=== PATIENT | female | born 1995 | race African-American/Black ===

== ENCOUNTER 2018-12-10 07:37 | Inpatient (IN) | payer OTHER ==
[2018-12-10] MEDS: ONDANSETRON 4 MG TAB PO (08:19)
[2018-12-10 08:34] LABS: ADD UMIC YES; UR ASCORBIC ACID NEGATIVE (NEGATIVE); UR BACTERIA FEW /HPF (NONE SEEN); UR BILIRUBIN (Dip) NEGATIVE (NEGATIVE); UR BLOOD (Dip) 1+ mg/dL (NEGATIVE); UR CLARITY SLIGHTLY CLOUDY (CLEAR); UR COLOR YELLOW (YELLOW); UR GLUCOSE (Dip) NEGATIVE (NEGATIVE); UR KETONES (Dip) 2+ mg/dL (NEGATIVE); UR LEUKOCYTE ESTERASE (Dip) 3+ Leu/ul (NEGATIVE); UR MUCUS MANY /HPF (NONE SEEN); UR NITRITE (Dip) NEGATIVE (NEGATIVE); UR RBC 13 /HPF (0-5); UR SQUAMOUS EPITHELIAL CELL FEW /HPF (FEW); UR TOTAL PROTEIN (Dip) 2+ mg/dl (NEGATIVE); UR UROBILINOGEN (Dip) NEGATIVE (NEGATIVE); UR WBC 40 /HPF (0-5)
[2018-12-10 09:07] LABS: ALANINE AMINOTRANSFERASE 12 IU/L (13-69); ALBUMIN 3.7 g/dl (3.3-4.9); ALBUMIN/GLOBULIN RATIO 1.02; ALKALINE PHOSPHATASE 56 IU/L (42-121); ANION GAP 12 (5-13); ASPARTATE AMINO TRANSFERASE 20 IU/L (15-46); BILIRUBIN,INDIRECT 0.4 mg/dl (0-1.1); BILIRUBIN,TOTAL 0.4 mg/dl (0.2-1.3); BLOOD UREA NITROGEN 8 mg/dl (7-20); CALCIUM 8.9 mg/dl (8.4-10.2); CARBON DIOXIDE 18 mmol/L (21-31); CHLORIDE 106 mmol/L (97-110); CREATININE 0.54 mg/dl (0.44-1.00); Estimated GFR > 60 mL/min (>60); GLUCOSE 73 mg/dl (70-220); POTASSIUM 3.2 mmol/L (3.5-5.1); SODIUM 136 mmol/L (135-144); TOTAL PROTEIN 7.3 g/dl (6.1-8.1)
[2018-12-10 09:39] LABS: ADD MAN DIFF? NO
[2018-12-10 09:41] LABS: ABNORMAL IP MESSAGE 1; BASOPHIL # 0.1 10^3/ul (0.0-0.1); BASOPHILS % 0.6 % (0.0-2.0); EOSINOPHILS % 0.4 % (0.0-7.0); HEMATOCRIT 27.2 % (37.0-47.0); HEMOGLOBIN 7.8 g/dl (12.0-16.0); LYMPHOCYTES # 1.2 10^3/ul (0.8-2.9); LYMPHOCYTES % 15.5 % (15.0-51.0); MEAN CORPUSCULAR HEMOGLOBIN 15.3 pg (29.0-33.0); MEAN CORPUSCULAR HGB CONC 28.7 g/dl (32.0-37.0); MEAN CORPUSCULAR VOLUME 53.2 fl (82.0-101.0); MEAN PLATELET VOLUME 9.3 fl (7.4-10.4); MONOCYTE # 0.6 10^3/ul (0.3-0.9); MONOCYTES % 7.3 % (0.0-11.0); NEUTROPHILS % 75.8 % (39.0-77.0); PLATELET COUNT 430 10^3/UL (140-415); RED BLOOD COUNT 5.11 10^6/ul (4.20-5.40); RED CELL DISTRIBUTION WIDTH 21.4 % (11.5-14.5)
[2018-12-10 09:41] LABS: WHITE BLOOD COUNT 7.9 10^3/ul (4.8-10.8)
[2018-12-10 09:45] LABS: POSITIVE DIFF @See below
[2018-12-10] MEDS: LACTATED RINGER'S 1,000 ML IV ×4 (09:48→20:11)
[2018-12-10 09:50] LABS: URIC ACID 4.9 mg/dl (3.1-7.9)
[2018-12-10] MEDS: ACETAMINOPHEN 500 MG TAB PO (09:50)
[2018-12-10 10:00] LABS: INR 0.98; PROTIME 13.1 Sec (11.9-14.9)
[2018-12-10 10:01] LABS: PARTIAL THROMBOPLASTIN TIME 30.1 Sec (23.0-35.0)
[2018-12-10] MEDS: POTASSIUM CHLORIDE (SR) 20 MEQ TAB PO (10:20)
[2018-12-10 10:24] LABS: CREATININE,URINE RANDOM 253.49 mg/dl (20-320); PROTEIN/CREAT RATIO 0.08 RATIO
[2018-12-10 11:16] LABS: RUPTURE FETAL MEMBRANES NEGATIVE (NEGATIVE)
[2018-12-10] MEDS: CYCLOBENZAPRINE 10 MG TAB PO (12:15)
[2018-12-10 21:13] LABS: AMPHETAMINE/METHAMPHETAMINE Negative (NEGATIVE); BARBITURATES Negative (NEGATIVE); BENZODIAZEPINES Negative (NEGATIVE); CANNABINOIDS Positive (NEGATIVE); COCAINE Negative (NEGATIVE); OPIATES Negative (NEGATIVE)
[2018-12-11] MEDS: LACTATED RINGER'S 1,000 ML IV ×4 (04:57→22:51)
[2018-12-11] MEDS ORDERED: ONDANSETRON 4 MG INJ (06:18)
[2018-12-11] MEDS: ONDANSETRON 4 MG INJ IV ×2 (06:22→18:42)
[2018-12-11 06:27] LABS: ADD MAN DIFF? NO
[2018-12-11 06:36] LABS: ABNORMAL IP MESSAGE 1; BASOPHILS % 0.5 % (0.0-2.0); EOSINOPHILS # 0.1 10^3/ul (0.0-0.5); EOSINOPHILS % 0.8 % (0.0-7.0); HEMATOCRIT 22.2 % (37.0-47.0); LYMPHOCYTES # 1.5 10^3/ul (0.8-2.9); MEAN CORPUSCULAR HEMOGLOBIN 15.4 pg (29.0-33.0); MEAN CORPUSCULAR HGB CONC 28.8 g/dl (32.0-37.0); MEAN CORPUSCULAR VOLUME 53.5 fl (82.0-101.0); MEAN PLATELET VOLUME 9.3 fl (7.4-10.4); MONOCYTE # 0.6 10^3/ul (0.3-0.9); MONOCYTES % 9.9 % (0.0-11.0); NEUTROPHIL # 3.8 10^3/ul (1.6-7.5); NEUTROPHILS % 63.5 % (39.0-77.0); PLATELET COUNT 331 10^3/UL (140-415); RED BLOOD COUNT 4.15 10^6/ul (4.20-5.40); RED CELL DISTRIBUTION WIDTH 20.7 % (11.5-14.5)
[2018-12-11 07:00] LABS: POSITIVE DIFF @See below
[2018-12-11 07:01] LABS: HEMOGLOBIN 6.4 g/dl (12.0-16.0); PATH REVIEW? YES
[2018-12-11 07:49] LABS: BASOPHILS % (M) 1 % (0-2); BURR CELLS 1+ (0-0); EOSINOPHILS % (M) 4 % (0-7); MONOCYTE #M 0.3 10^3/ul (0.3-0.9); OVALOCYTES 1+ (0-0); PLATELET ESTIMATE NORMAL; POIKILOCYTOSIS 2+ (0-0)
[2018-12-11 10:08] LABS: ANISOCYTOSIS 2+ (0-0); BAND NEUTROPHILS #M 0.1 10^3/ul (0.0-0.6); BAND NEUTROPHILS % (M) 2 % (0-4); GIANT THROMBO% (M) 3 % (0-0); HYPOCHROMASIA 2+ (0-0); LYMPHOCYTES #M 1.3 10^3/ul (0.8-2.9); LYMPHOCYTES % (M) 22 % (15-51); MICROCYTOSIS 2+ (0-0); MONOCYTES % (M) 5 % (0-11); REACTIVE LYMPHOCYTES #M 0.1 10^3/ul (0.0-0.0); REACTIVE LYMPHOCYTES% (M) 2 % (0-0); SEG NEUT #M 4.1 10^3/ul (1.6-7.5); SEGMENTED NEUTROPHILS (M) % 69 % (39-77); SMUDGE%M 7 % (0-0); TARGET CELLS 1+ (0-0)
[2018-12-11 11:27] LABS: IMMEDIATE SPIN CROSSMATCH 1 1
[2018-12-11] MEDS: SOD CHLORIDE 0.9% 250 ML IV* (11:45)
[2018-12-11] MEDS: PRENATAL VITAMIN PO (13:10)
[2018-12-11 19:51] LABS: COLLECTION PERIOD 24 hrs
[2018-12-11 20:09] LABS: COLLECTION PERIOD 24 hrs; SCRET 0.54 mg/dl (0.44-1.00); VOLUME 2175 ml/24hrs; VOLUME 2175 mls
[2018-12-11 20:18] LABS: CREATININE CLEARANCE 123.1 mls/min (84.0-162.0); CREATININE,URINE RANDOM 44.02 mg/dl (20-320)
[2018-12-11 20:19] LABS: 24HR URINE TOTAL PROTEIN 369.8 mg/24hrs (42.0-225.0)
[2018-12-12] MEDS: LACTATED RINGER'S 1,000 ML IV ×5 (00:03→18:48)
[2018-12-12 06:04] LABS: ADD MAN DIFF? NO
[2018-12-12 06:10] LABS: ABNORMAL IP MESSAGE 1; BASOPHILS % 0.5 % (0.0-2.0); EOSINOPHILS # 0.1 10^3/ul (0.0-0.5); EOSINOPHILS % 1.7 % (0.0-7.0); HEMOGLOBIN 7.4 g/dl (12.0-16.0); LYMPHOCYTES # 1.4 10^3/ul (0.8-2.9); LYMPHOCYTES % 21.2 % (15.0-51.0); MEAN CORPUSCULAR HEMOGLOBIN 16.3 pg (29.0-33.0); MEAN CORPUSCULAR HGB CONC 29.6 g/dl (32.0-37.0); MEAN CORPUSCULAR VOLUME 55.1 fl (82.0-101.0); MEAN PLATELET VOLUME 8.9 fl (7.4-10.4); MONOCYTE # 0.7 10^3/ul (0.3-0.9); MONOCYTES % 10.3 % (0.0-11.0); NEUTROPHIL # 4.3 10^3/ul (1.6-7.5); NEUTROPHILS % 65.8 % (39.0-77.0); PLATELET COUNT 307 10^3/UL (140-415); RED BLOOD COUNT 4.54 10^6/ul (4.20-5.40); RED CELL DISTRIBUTION WIDTH 23.5 % (11.5-14.5)
[2018-12-12 06:10] LABS: WHITE BLOOD COUNT 6.5 10^3/ul (4.8-10.8)
[2018-12-12 06:21] LABS: POSITIVE DIFF @See below
[2018-12-12] MEDS: PRENATAL VITAMIN PO (08:31)
[2018-12-12] MEDS: ONDANSETRON 4 MG INJ IV ×2 (08:36→18:55)
[2018-12-12] MEDS: DIPHENHYDRAMINE 25 MG CAP PO (21:03)
[2018-12-13] MEDS: LACTATED RINGER'S 1,000 ML IV ×2 (03:47→11:29)
[2018-12-13] MEDS: PRENATAL VITAMIN PO (09:37)
[2018-12-13] MEDS: ONDANSETRON 4 MG INJ IV (09:39)
== END 2018-12-13 18:05 | disposition home or self-care (01) | DRG 832 ==
LOC: OBT 07:37 → L-D 07:39 → OBT 15:10 → L-D 15:10 → 2NE 12-11 14:43
DX: O21.8 Other vomiting complicating pregnancy (principal); O16.2 Unspecified maternal hypertension, second trimester; O99.012 Anemia complicating pregnancy, second trimester; Z3A.21 21 weeks gestation of pregnancy
CPT/HCPCS: 36415; 36430; 76815; 76816; 76817; 80053; 80307; 81001; 81003; 82570; 82575; 84112; 84156; 84560; 85025; 85610; 85730; 86850; 86900; 86901; 86920; 87086; 87210; 93005; 96360; 96361

== ENCOUNTER 2019-02-13 08:29 | Outpatient (CLI) | payer OTHER ==
[2019-02-13] MEDS: ONDANSETRON 4 MG INJ IV (09:40)
[2019-02-13] MEDS: LACTATED RINGER'S 1,000 ML IV (09:40)
[2019-02-13 10:37] LABS: ADD UMIC YES; UR ASCORBIC ACID NEGATIVE (NEGATIVE); UR BACTERIA FEW /HPF (NONE SEEN); UR BILIRUBIN (Dip) NEGATIVE (NEGATIVE); UR BLOOD (Dip) 1+ mg/dL (NEGATIVE); UR CLARITY CLOUDY (CLEAR); UR COLOR YELLOW (YELLOW); UR GLUCOSE (Dip) NEGATIVE (NEGATIVE); UR KETONES (Dip) 1+ mg/dL (NEGATIVE); UR LEUKOCYTE ESTERASE (Dip) 3+ Leu/ul (NEGATIVE); UR MUCUS FEW /HPF (NONE SEEN); UR NITRITE (Dip) NEGATIVE (NEGATIVE); UR RBC 18 /HPF (0-5); UR SQUAMOUS EPITHELIAL CELL MODERATE /HPF (FEW); UR TOTAL PROTEIN (Dip) NEGATIVE (NEGATIVE); UR UROBILINOGEN (Dip) NEGATIVE (NEGATIVE); UR WBC 40 /HPF (0-5)
[2019-02-13 10:53] LABS: AMPHETAMINE/METHAMPHETAMINE Negative (NEGATIVE); BARBITURATES Negative (NEGATIVE); BENZODIAZEPINES Negative (NEGATIVE); CANNABINOIDS Positive (NEGATIVE); COCAINE Negative (NEGATIVE); OPIATES Negative (NEGATIVE)
[2019-02-13] MEDS: TERBUTALINE 1 MG/ML INJ SC (12:31)
== END 2019-02-13 14:35 | disposition left against medical advice (07) ==
LOC: OBT 08:29 → L-D 08:31 → OBT 14:35
DX: Z53.21 Procedure and treatment not carried out due to patient leaving prior to being seen by health care provider (principal)
CPT/HCPCS: 36415; 76815; 76817; 76818; 80307; 81001; 82731; 87086